=== PATIENT | female | born 1945 | race African-American/Black ===

== ENCOUNTER 2017-05-17 06:47 | Day surgery (SDC) | payer MEDICARE, MEDICAID ==
[~2017-05-17] VITALS: Ht 160 cm; Wt 79.4 kg
[2017-05-17] MEDS ORDERED: BALANCED SALT IRRIG SOLN COMB1 500ML OP SCH (07:30)
[2017-05-17] MEDS ORDERED: PHENYLEPHRINE 2.5% OPHTH 15 DROP/ML BOTTLE LEFTEYE SCH (08:00)
[2017-05-17] MEDS ORDERED: CYCLOPENTOLATE HCL 1% OPHTH DROPS 2ML LEFTEYE SCH (08:00)
[2017-05-17] MEDS ORDERED: KETOROLAC TROMETHAMINE 0.5% OPHTH 3ML LEFTEYE SCH (08:00)
[2017-05-17] MEDS ORDERED: CIPROFLOXACIN 0.3% OPHTH SOLN 2.5ML LEFTEYE SCH (08:00)
[2017-05-17] MEDS ORDERED: TROPICAMIDE 1% OPHTH DROPS 15ML LEFTEYE SCH (08:00)
[2017-05-17] MEDS ORDERED: [UNRECOGNIZED DRUG - OTHER] PO (08:02)
[2017-05-17] MEDS ORDERED: BENA20TA3 PO (08:02)
[2017-05-17] MEDS ORDERED: LOSA50TA20 PO (08:02)
[2017-05-17] MEDS ORDERED: SODIUM CHLORIDE 0.9% 1,000 ML IV SCH ×2 (08:40→10:34)
[2017-05-17] MEDS ORDERED: METHYLPREDNISOLONE SOD SUCC 40 MG/ML VIAL ONE (09:02)
[2017-05-17] MEDS ORDERED: TOBRAMYCIN/DEXAMETH 0.1/0.3% OPHTH SUSP 2.5ML ONE (09:02)
[2017-05-17] MEDS ORDERED: TOBRAMYCIN SULFATE 80MG/2ML 30ML ONE (09:12)
[2017-05-17] MEDS ORDERED: HYALURONATE SODIUM 14 MG/ML 0.85ML SYRINGE IO ONE (09:17)
[2017-05-17] MEDS ORDERED: MIDAZOLAM HCL 2 MG/2 ML VIAL ONE (09:41)
[2017-05-17] MEDS ORDERED: PROPOFOL 200MG/20ML VIAL IV ONE (09:44)
[2017-05-17] MEDS ORDERED: LIDOCAINE HCL 1% 20ML VIAL (Pyxis) INJ ONE (09:44)
[2017-05-17] MEDS ORDERED: FENTANYL CITRATE/PF 50MCG/ML 2ML VIAL ONE (10:27)
[2017-05-17] MEDS ORDERED: ACET-2178 PO (10:44)
[2017-05-17] MEDS ORDERED: MORPHINE SULFATE 2 MG/ML CPJ (NOT FOR IM USE) IV PRN (10:45)
[2017-05-17] MEDS ORDERED: ACET250T3 PO (10:45)
[2017-05-17] MEDS ORDERED: ONDANSETRON HCL 4MG/2ML VIAL IV PRN (10:45)
[2017-05-17] MEDS ORDERED: ACETAMINOPHEN WITH CODEINE 300/30MG TABLET PO PRN (11:30)
[2017-05-17] MEDS ORDERED: ACETYLCHOLINE CHLORIDE INTRAOCULAR SOLUTION 1:100 ELECTROLYTE DILUENT IO ONE (14:52)
[2017-05-17] MEDS ORDERED: BALANCED SALT IRRIG SOLN 15ML ONE (14:52)
[2017-05-17] MEDS ORDERED: NEO/POLYMYX B SULF/DEXAMETH OPHTH OINT 3.5GM ONE (14:54)
[2017-05-17] MEDS ORDERED: PILOCARPINE HCL 2% OPHTH DROPS 15ML ONE (14:54)
[2017-05-17] MEDS ORDERED: BUPIVACAINE HCL/PF 0.75% (7.5MG/ML) 10ML ONE (14:54)
[2017-05-17] MEDS ORDERED: LIDOCAINE HCL 2%/EPINEPHRINE 1:100,000 20 ML VIAL INFIL ONE (14:54)
== END 2017-05-17 12:21 | disposition home or self-care (01) ==
LOC: OR 06:47
PROVIDERS: ATTEND Ophthalmology
DX: H25.12 Age-related nuclear cataract, left eye (principal); H35.3130 Nonexudative age-related macular degeneration, bilateral, stage unspecified; I10 Essential (primary) hypertension; E66.3 Overweight; Z98.890 Other specified postprocedural states; Z88.6 Allergy status to analgesic agent; Z79.899 Other long term (current) drug therapy
CPT/HCPCS: 66982; 82962; J2250; J2920; J3010; J3260; J3490; J7030; J7120; V2632; J2704

== ENCOUNTER 2018-07-16 06:51 | Day surgery (SDC) | payer MEDICARE, MEDICAID ==
[~2018-07-16] VITALS: Ht 167.6 cm; Wt 78.5 kg
[~2018-07-16 06:51] MED LIST: ACET-2178 PO; ACET250T3 PO; BENA20TA10 PO; CYCLOPENTOLATE HCL 1% OPHTH DROPS 2ML RIGHTEYE ONE; LOSA50TA20 PO; PHENYLEPHRINE HCL 10% OPHTH DROPS 5ML RIGHTEYE ONE; TROPICAMIDE 1% OPHTH DROPS 15ML RIGHTEYE ONE; [UNRECOGNIZED DRUG - OTHER] PO
[2018-07-16] MEDS ORDERED: BALANCED SALT IRRIG SOLN COMB1 500ML OP SCH (07:30)
[2018-07-16] MEDS: SODIUM CHLORIDE 0.9% 1,000 ML IV SCH ×2 (07:37→08:00)
[2018-07-16] MEDS ORDERED: AMLO5TAB88 PO (07:59)
[2018-07-16] MEDS ORDERED: ATOR10TA69 PO (07:59)
[2018-07-16] MEDS ORDERED: GLIP10TA10 PO (07:59)
[2018-07-16] MEDS ORDERED: FENTANYL CITRATE/PF 50MCG/ML 2ML VIAL ONE (08:33)
[2018-07-16] MEDS ORDERED: MIDAZOLAM HCL 2 MG/2 ML VIAL ONE (08:33)
[2018-07-16] MEDS ORDERED: HYALURONATE SODIUM 14 MG/ML 0.85ML SYRINGE IO ONE (08:51)
[2018-07-16] MEDS ORDERED: MEPERIDINE HCL/PF 25MG/ML CPJ IV PRN (09:00)
[2018-07-16] MEDS ORDERED: ONDANSETRON HCL 4MG/2ML INJ IV PRN (09:00)
[2018-07-16] MEDS ORDERED: LABETALOL HCL 5MG/ML VIAL 20ML IV PRN (09:00)
[2018-07-16] MEDS ORDERED: HYDROMORPHONE HCL/PF 2MG/ML CPJ IV PRN (09:00)
[2018-07-16] MEDS ORDERED: PREDNISOLONE ACETATE 1% OPHTH DROPS 1ML ONE (10:51)
[2018-07-16] MEDS ORDERED: CIPROFLOXACIN 0.3% OPHTH SOLN 2.5ML ONE (10:51)
[2018-07-16] MEDS ORDERED: BALANCED SALT IRRIG SOLN 15ML ONE (10:51)
[2018-07-16] MEDS ORDERED: NEO/POLYMYX B SULF/DEXAMETH OPHTH OINT 3.5GM ONE (10:51)
[2018-07-16] MEDS ORDERED: LIDOCAINE HCL/PF 2% 20 MG/ML 10ML VIAL ONE (10:51)
[2018-07-16] MEDS ORDERED: ACETYLCHOLINE CHLORIDE INTRAOCULAR SOLUTION 1:100 ELECTROLYTE DILUENT IO ONE (10:51)
[2018-07-16] MEDS ORDERED: BUPIVACAINE HCL/PF 0.75% (7.5MG/ML) 10ML ONE (10:51)
== END 2018-07-16 10:57 | disposition home or self-care (01) ==
LOC: OR 06:51
PROVIDERS: ATTEND Ophthalmology
DX: E11.36 Type 2 diabetes mellitus with diabetic cataract (principal); H26.9 Unspecified cataract; I10 Essential (primary) hypertension; H57.03 Miosis
CPT/HCPCS: 66982; 82962; J2250; J3010; J3490; V2632

== ENCOUNTER 2024-05-08 06:59 | Inpatient (IN) | payer MEDICARE, MEDICAID ==
[~2024-05-08] VITALS: Ht 165.1 cm; Wt 84.5 kg
[~2024-05-08 06:59] MED LIST changes: -ACET-2178 PO; +ACET250T29 PO; -ACET250T3 PO; +AMLO5TAB88 PO; +ATOR10TA69 PO; -BENA20TA10 PO; -CYCLOPENTOLATE HCL 1% OPHTH DROPS 2ML RIGHTEYE ONE; +GLIP10TA10 PO; -LOSA50TA20 PO; +LOSA50TA41 PO; -PHENYLEPHRINE HCL 10% OPHTH DROPS 5ML RIGHTEYE ONE; +TOPUD PO; -TROPICAMIDE 1% OPHTH DROPS 15ML RIGHTEYE ONE
[2024-05-08 07:08] VITALS: O2SAT 96
[2024-05-08 07:44] LABS: BASOPHILS % 0.5 % (0.0-2.0); EOSINOPHILS % 0.1 % (0.0-5.0); HEMATOCRIT. 36.9 % (36.0-48.0); HEMOGLOBIN. 11.9 g/dL (12.0-16.0); LYMPHOCYTES % 8.7 % (20.0-50.0); MEAN CORPUSCULAR HGB CONC 32.3 g/dL (31.0-37.0); MEAN CORPUSCULAR VOLUME 89.7 fL (81.0-99.0); MEAN PLATELET VOLUME 10.4 fl (7.4-10.4); MONOCYTES % 5.1 % (2.0-8.0); NEUTROPHILS % 85.6 % (40.0-76.0); PLATELET 179 x1000/uL (130-400); RED BLOOD CELL COUNT 4.12 mill/uL (4.2-5.4); RED CELL DISTRIBUTION WIDTH 13.2 % (11.6-14.6); WHITE BLOOD COUNT 12.8 x1000/uL (4.5-11.0)
[2024-05-08 07:52] LABS: CALCIUM 9.2 mg/dL (8.7-10.4)
[2024-05-08 07:57] LABS: CREATININE 1.1 mg/dL (0.6-1.0)
[2024-05-08 08:01] LABS: INR 1.1; PROTHROMBIN TIME 12.2 sec (9.6-11.0)
[2024-05-08] MEDS: SODIUM CHLORIDE 0.9% 1,000 ML IV ONE (08:12)
[2024-05-08] MEDS: ONDANSETRON HCL 4MG/2ML INJ IV STA (08:13)
[2024-05-08] MEDS: MORPHINE SULFATE 4 MG/ML INJ (FOR IV/IM USE) IV STA (08:14)
[2024-05-08] MEDS: INSULIN REGULAR (HUMULIN R) 1000UNITS/10ML VIAL SUBCUT NR (09:29)
[2024-05-08] MEDS ORDERED: ONDANSETRON HCL 4MG/2ML INJ IV PRN (13:30)
[2024-05-08] MEDS ORDERED: IPRATROPIUM/ALBUTEROL 0.5-3(2.5)MG/3ML NEB HHN PRN (13:30)
[2024-05-08] MEDS ORDERED: ACETAMINOPHEN 325MG TABLET PO PRN (13:30)
[2024-05-08] MEDS ORDERED: HYDRALAZINE 20MG/ML VIAL IV NR (13:30)
[2024-05-08] MEDS ORDERED: DEXTROSE 50% WATER 50ML SYRINGE IV PRN (13:30)
[2024-05-08] MEDS: SODIUM CHLORIDE 0.9% 1,000 ML IV SCH (13:30)
[2024-05-08] MEDS ORDERED: NALOXONE HCL 0.4MG/ML VIAL IV PRN (13:30)
[2024-05-08] MEDS ORDERED: GUAIFENESIN 200MG/10ML SUGAR FREE UDC PO PRN (13:30)
[2024-05-08] MEDS ORDERED: MAGNESIUM/ALUMINUM HYDROXIDE/SIMETHICONE 30ML UDC PO PRN (13:30)
[2024-05-08 13:50] VITALS: BP 161/77; PULSE 82; RESP 18; TEMP 36.61404; TEMP 36.6404; O2SAT 100
[2024-05-08] MEDS: HYDRALAZINE 10 MG in SODIUM CHLORIDE 0.9% 49.5 ML IV NR (15:48)
[2024-05-08 16:00] VITALS: BP 117/54; PULSE 80; RESP 18; TEMP 36.33624; O2SAT 100
[2024-05-08] MEDS: ENOXAPARIN 40MG/0.4ML SYR SUBCUT SCH (16:00)
[2024-05-08 17:14] LABS: INR 1.1; PARTIAL THROMBOPLASTIN TIME 26.8 sec (23.4-31.0); PROTHROMBIN TIME 11.9 sec (9.6-11.0)
[2024-05-08 17:31] LABS: CREATINE KINASE 335 IU/L (34-145)
[2024-05-08 17:38] LABS: TROPONIN I HIGH SENSITIVITY 94 ng/L (3.0-34)
[2024-05-08] MEDS: BLOOD SUGAR DIAGNOSTIC STRIP TEST SCH (17:45)
[2024-05-08] MEDS ORDERED: MORPHINE SULFATE 2 MG/ML INJ (NOT FOR IM USE) IV PRN (18:30)
[2024-05-08] MEDS: INSULIN LISPRO 100 UNITS/ML SUBCUT SCH (18:49)
[2024-05-08 18:58] LABS: ALANINE AMINOTRANSFERASE 12 IU/L (10-49); ALBUMIN 3.5 g/dL (3.2-4.8); ASPARTATE AMINOTRANSFERASE 20 IU/L (<34); BILIRUBIN DIRECT 0.2 mg/dL (<=3.0); BILIRUBIN TOTAL 0.7 mg/dL (0.1-1.0); PHOSPHORUS 3.1 mg/dL (2.5-4.9); PROTEIN TOTAL 8.1 g/dL (6.0-8.3)
[2024-05-08] MEDS: ATORVASTATIN CALCIUM 40MG TABLET PO SCH (20:45)
[2024-05-08 21:30] VITALS: BP 155/55; PULSE 86; RESP 18; TEMP 38.892; O2SAT 100
[2024-05-08] MEDS: ACETAMINOPHEN 325MG TABLET PO PRN (22:34)
[2024-05-09] VITALS: BP 140/56; PULSE 86; RESP 20; TEMP 38.16972; O2SAT 100
[2024-05-09 04:00] VITALS: BP 130/66; PULSE 71; RESP 18; TEMP 37.16964; O2SAT 100
[2024-05-09] MEDS: MORPHINE SULFATE 2 MG/ML INJ (NOT FOR IM USE) IV PRN (04:53)
[2024-05-09] MEDS ORDERED: POLYMYXIN B SULFATE 500000 UNITS/VIAL ONE ×2 (06:47→11:02)
[2024-05-09] MEDS ORDERED: LIDOCAINE HCL/EPINEPHRINE 1%-EPI 1:100,000 20ML VIAL ONE ×2 (06:47→11:02)
[2024-05-09] MEDS ORDERED: VANCOMYCIN HCL 1GM VIAL ONE ×2 (06:47→11:02)
[2024-05-09] MEDS ORDERED: BACITRACIN 14GM TUBE TOP ONE (06:47)
[2024-05-09 07:00] LABS: CALCIUM 8.3 mg/dL (8.7-10.4); CARBON DIOXIDE 24 mEq/L (21-32); CHLORIDE 105 mEq/L (98-107); POTASSIUM 3.5 mEq/L (3.5-5.1); SODIUM 136 mEq/L (136-145)
[2024-05-09 07:03] LABS: BASOPHILS % 0.4 % (0.0-2.0); EOSINOPHILS % 0.9 % (0.0-5.0); HEMATOCRIT. 32.4 % (36.0-48.0); HEMOGLOBIN. 10.6 g/dL (12.0-16.0); LYMPHOCYTES % 25.3 % (20.0-50.0); MEAN CORPUSCULAR HEMOGLOBIN 29.6 pg (28.0-32.0); MEAN CORPUSCULAR HGB CONC 32.7 g/dL (31.0-37.0); MEAN CORPUSCULAR VOLUME 90.5 fL (81.0-99.0); MEAN PLATELET VOLUME 10.8 fl (7.4-10.4); MONOCYTES % 7.3 % (2.0-8.0); NEUTROPHILS % 66.1 % (40.0-76.0); PLATELET 157 x1000/uL (130-400); RED BLOOD CELL COUNT 3.58 mill/uL (4.2-5.4); RED CELL DISTRIBUTION WIDTH 12.8 % (11.6-14.6); WHITE BLOOD COUNT 7.2 x1000/uL (4.5-11.0)
[2024-05-09 07:06] LABS: CREATININE 0.9 mg/dL (0.6-1.0); GLUCOSE 186 mg/dL (70-105); TRIGLYCERIDE 89 mg/dL (0-150)
[2024-05-09 07:07] LABS: LDL CHOLESTEROL 82 mg/dL (5-100); T4 FREE 1.27 ng/dL (0.89-1.76); THYROID STIMULATING HORMONE 0.73 uIU/mL (0.55-4.78); UREA NITROGEN BLOOD 17 mg/dL (9-23)
[2024-05-09 07:08] LABS: CHOLESTEROL 135 mg/dL (<200); HDL CHOLESTEROL 42 mg/dL (>65); PHOSPHORUS 2.6 mg/dL (2.5-4.9)
[2024-05-09 07:55] VITALS: BP 153/70; PULSE 76; RESP 20; TEMP 37.05852; O2SAT 100
[2024-05-09] MEDS ORDERED: ACETAMINOPHEN 325MG TABLET PO PRN (10:45)
[2024-05-09] MEDS ORDERED: HYDROCODONE/ACETAMINOPHEN 5/325MG TABLET PO PRN (10:45)
[2024-05-09] MEDS ORDERED: ONDANSETRON HCL 4MG/2ML INJ IV PRN ×2 (10:45→12:30)
[2024-05-09] MEDS ORDERED: BUPIVACAINE HCL/PF 0.25% (2.5MG/ML) 10ML ONE (11:02)
[2024-05-09] MEDS ORDERED: MIDAZOLAM HCL 2 MG/2 ML VIAL ONE (11:20)
[2024-05-09] MEDS ORDERED: ETOMIDATE 2MG/ML 10ML VIAL IV ONE (11:20)
[2024-05-09] MEDS ORDERED: FENTANYL CITRATE/PF 50MCG/ML 2ML VIAL ONE (11:20)
[2024-05-09] MEDS ORDERED: TRANEXAMIC ACID 1000MG PREMIX 200 ML IV ONE (11:41)
[2024-05-09] MEDS ORDERED: ROPIVACAINE HCL 1% 20 ML VIAL EPI ONE (12:17)
[2024-05-09] MEDS ORDERED: SKIN ADHESIVE 0.7 GM EA TOP ONE (12:26)
[2024-05-09] MEDS ORDERED: LABETALOL 5MG/ML 4ML INJ IV PRN (12:30)
[2024-05-09] MEDS ORDERED: HYDROMORPHONE HCL/PF 1MG/ML INJ IV PRN (12:30)
[2024-05-09] MEDS ORDERED: SUGAMMADEX SODIUM 200MG/2ML VIAL IV ONE (12:47)
[2024-05-09] MEDS: MEPERIDINE HCL/PF 25MG/ML CPJ IV PRN (13:50)
[2024-05-09] MEDS: METOCLOPRAMIDE HCL 10MG/2ML VIAL IV SCH (14:00)
[2024-05-09 15:04] VITALS: BP 148/62; PULSE 81; RESP 20; TEMP 36.50292; O2SAT 98
[2024-05-09 15:28] VITALS: BP 122/65; PULSE 86; RESP 18; TEMP 36.83628; O2SAT 100
[2024-05-09] MEDS: CEFAZOLIN 1000MG PREMIX 50 ML IV SCH ×2 (17:25→20:00)
[2024-05-09] MEDS: ASPIRIN 325MG EC TABLET PO SCH (21:00)
[2024-05-09] MEDS: ASPIRIN 81MG TABLET PO NR (21:35)
[2024-05-09] MEDS: SENNOSIDES/DOCUSATE SOD 8.6/50MG TABLET PO SCH (21:39)
[2024-05-10] VITALS: BP 105/48; PULSE 93; RESP 18; TEMP 37.55856; O2SAT 100
[2024-05-10 04:00] VITALS: BP 145/54; PULSE 95; RESP 18; TEMP 37.55856; O2SAT 97
[2024-05-10] MEDS: KETOROLAC 30MG/ML VIAL IV PRN (04:15)
[2024-05-10 07:29] LABS: CHLORIDE 107 mEq/L (98-107); POTASSIUM 3.2 mEq/L (3.5-5.1); SODIUM 139 mEq/L (136-145)
[2024-05-10 07:30] LABS: BASOPHILS % 0.4 % (0.0-2.0); CARBON DIOXIDE 23 mEq/L (21-32); EOSINOPHILS % 0.4 % (0.0-5.0); HEMATOCRIT. 27.9 % (36.0-48.0); LYMPHOCYTES % 19.2 % (20.0-50.0); MEAN CORPUSCULAR HEMOGLOBIN 29.2 pg (28.0-32.0); MEAN CORPUSCULAR HGB CONC 32.4 g/dL (31.0-37.0); MEAN PLATELET VOLUME 10.7 fl (7.4-10.4); MONOCYTES % 13.3 % (2.0-8.0); NEUTROPHILS % 66.7 % (40.0-76.0); PLATELET 140 x1000/uL (130-400); RED CELL DISTRIBUTION WIDTH 12.9 % (11.6-14.6); WHITE BLOOD COUNT 8.3 x1000/uL (4.5-11.0)
[2024-05-10 07:31] LABS: CALCIUM 7.9 mg/dL (8.7-10.4)
[2024-05-10 07:35] LABS: CREATININE 0.7 mg/dL (0.6-1.0); GLUCOSE 109 mg/dL (70-105); UREA NITROGEN BLOOD 11 mg/dL (9-23)
[2024-05-10 08:00] VITALS: BP 129/57; PULSE 91; RESP 18; TEMP 37.16964; O2SAT 99
[2024-05-10 08:08] LABS: TROPONIN I HIGH SENSITIVITY 47 ng/L (3.0-34)
[2024-05-10] MEDS ORDERED: ASPIRIN 325MG EC TABLET PO SCH (09:00)
[2024-05-10] MEDS: HYDROCODONE/ACETAMINOPHEN 5/325MG TABLET PO PRN (10:19)
[2024-05-10] MEDS: POTASSIUM CHLORIDE 20MEQ TABLET SR PO SCH (10:20)
[2024-05-10 12:00] VITALS: BP 119/54; PULSE 79; RESP 18; TEMP 36.6696; O2SAT 98
[2024-05-10] MEDS: ASPIRIN 81MG EC TABLET PO SCH (13:57)
[2024-05-10 16:00] VITALS: BP 121/69; PULSE 80; RESP 18; TEMP 36.61404; O2SAT 100
[2024-05-10 17:26] LABS: CREATINE KINASE 396 IU/L (34-145); PHOSPHORUS 2.4 mg/dL (2.5-4.9)
[2024-05-10 20:00] VITALS: BP 145/59; PULSE 85; RESP 20; TEMP 37.11408; O2SAT 96
[2024-05-11] VITALS: BP 155/64; PULSE 93; RESP 20; TEMP 37.61412; O2SAT 98
[2024-05-11 04:00] VITALS: BP 164/70; PULSE 80; RESP 20; TEMP 37.7808; O2SAT 98
[2024-05-11] MEDS: CLONIDINE 0.1MG TABLET PO PRN (05:57)
[2024-05-11 06:59] LABS: CHLORIDE 104 mEq/L (98-107); POTASSIUM 3.3 mEq/L (3.5-5.1); SODIUM 137 mEq/L (136-145)
[2024-05-11 07:00] LABS: CARBON DIOXIDE 25 mEq/L (21-32)
[2024-05-11 07:05] LABS: CREATININE 0.7 mg/dL (0.6-1.0); GLUCOSE 158 mg/dL (70-105)
[2024-05-11 07:06] LABS: UREA NITROGEN BLOOD 9 mg/dL (9-23)
[2024-05-11 07:07] LABS: PHOSPHORUS 2.2 mg/dL (2.5-4.9)
[2024-05-11 07:08] LABS: BASOPHILS % 0.4 % (0.0-2.0); EOSINOPHILS % 0.9 % (0.0-5.0); HEMATOCRIT. 29.3 % (36.0-48.0); HEMOGLOBIN. 9.6 g/dL (12.0-16.0); LYMPHOCYTES % 25.7 % (20.0-50.0); MEAN CORPUSCULAR HEMOGLOBIN 29.4 pg (28.0-32.0); MEAN CORPUSCULAR HGB CONC 32.6 g/dL (31.0-37.0); MEAN CORPUSCULAR VOLUME 90.2 fL (81.0-99.0); MEAN PLATELET VOLUME 10.6 fl (7.4-10.4); MONOCYTES % 11.4 % (2.0-8.0); NEUTROPHILS % 61.6 % (40.0-76.0); PLATELET 147 x1000/uL (130-400); RED BLOOD CELL COUNT 3.25 mill/uL (4.2-5.4); RED CELL DISTRIBUTION WIDTH 13.2 % (11.6-14.6); WHITE BLOOD COUNT 8.2 x1000/uL (4.5-11.0)
[2024-05-11 08:00] VITALS: BP 118/46; PULSE 80; RESP 18; TEMP 37.44744; O2SAT 95
[2024-05-11] MEDS: POTASSIUM CHLORIDE 20MEQ TABLET SR PO NR (09:10)
[2024-05-11 12:00] VITALS: BP 129/51; PULSE 83; RESP 18; TEMP 36.78072; O2SAT 99
[2024-05-11] MEDS: MAGNESIUM 2 G PREMIX 50 ML IV NR (12:58)
[2024-05-11 16:00] VITALS: BP 138/59; PULSE 84; RESP 18; TEMP 36.78072; O2SAT 100
[2024-05-11] MEDS: POTASSIUM PHOSPHATE 15 MMOL in DEXT 5% WATER 245 ML IV NR (16:14)
[2024-05-11 20:00] VITALS: BP 149/60; PULSE 64; RESP 18; TEMP 37.33632; O2SAT 98
[2024-05-12] VITALS: BP 141/60; PULSE 68; RESP 18; TEMP 37.00296; O2SAT 99
[2024-05-12 04:00] VITALS: BP 147/58; PULSE 66; RESP 19; TEMP 36.78072; O2SAT 98
[2024-05-12 06:37] LABS: BASOPHILS % 0.5 % (0.0-2.0); EOSINOPHILS % 0.7 % (0.0-5.0); HEMATOCRIT. 28.7 % (36.0-48.0); HEMOGLOBIN. 9.5 g/dL (12.0-16.0); LYMPHOCYTES % 18.7 % (20.0-50.0); MEAN CORPUSCULAR HEMOGLOBIN 29.4 pg (28.0-32.0); MEAN CORPUSCULAR VOLUME 89.1 fL (81.0-99.0); MONOCYTES % 8.5 % (2.0-8.0); NEUTROPHILS % 71.6 % (40.0-76.0); PLATELET 158 x1000/uL (130-400); RED BLOOD CELL COUNT 3.22 mill/uL (4.2-5.4); RED CELL DISTRIBUTION WIDTH 12.8 % (11.6-14.6); WHITE BLOOD COUNT 9.5 x1000/uL (4.5-11.0)
[2024-05-12 06:52] LABS: CHLORIDE 102 mEq/L (98-107); POTASSIUM 3.9 mEq/L (3.5-5.1); SODIUM 136 mEq/L (136-145)
[2024-05-12 06:53] LABS: CALCIUM 8.2 mg/dL (8.7-10.4); CARBON DIOXIDE 27 mEq/L (21-32)
[2024-05-12 06:58] LABS: CREATININE 0.7 mg/dL (0.6-1.0); GLUCOSE 169 mg/dL (70-105); UREA NITROGEN BLOOD 8 mg/dL (9-23)
[2024-05-12 07:00] LABS: PHOSPHORUS 2.9 mg/dL (2.5-4.9)
[2024-05-12 08:00] VITALS: BP 142/57; PULSE 88; RESP 17; TEMP 37.28076; O2SAT 95
[2024-05-12] MEDS ORDERED: OMEP40CA20 MT (11:35)
[2024-05-12] MEDS ORDERED: IBUP-2028 MT (11:35)
[2024-05-12] MEDS ORDERED: ASPI-1406 MT (11:35)
[2024-05-12] MEDS ORDERED: LIP40 PO (11:35)
[2024-05-12 12:00] VITALS: BP 137/56; PULSE 88; RESP 17; TEMP 36.61404; O2SAT 97
[2024-05-12 16:00] VITALS: BP 147/53; PULSE 88; RESP 18; TEMP 36.50292; O2SAT 100
[2024-05-12] MEDS: DOCUSATE SODIUM 100MG CAPSULE PO PRN (16:36)
[2024-05-12 20:00] VITALS: BP 130/47; PULSE 98; RESP 20; TEMP 37.72524; O2SAT 98
[2024-05-13] VITALS: BP 136/52; PULSE 88; RESP 18; TEMP 37.16964; O2SAT 98
[2024-05-13 00:19] LABS: CLARITY URINE CLEAR (CLEAR); COLOR URINE YELLOW (YELLOW); GLUCOSE URINE TRACE (NEGATIVE); KETONES URINE NEGATIVE (NEGATIVE); LEUKOCYTE ESTERASE URINE NEGATIVE (NEGATIVE); NITRITE URINE NEGATIVE (NEGATIVE); OCCULT BLOOD URINE 1+ (NEGATIVE); PH URINE 5.5 (4.5-8.0); PROTEIN URINE TRACE (NEGATIVE); SPECIFIC GRAVITY URINE 1.015 (1.005-1.030)
[2024-05-13 03:01] LABS: WBC URINE 0-2 /hpf (0-2)
[2024-05-13 03:02] LABS: BACTERIA URINE NONE SEEN; SQUAMOUS EPITHELIAL CELL URINE NONE SEEN /lpf (RARE/1+)
[2024-05-13 04:00] VITALS: BP 139/51; PULSE 98; RESP 20; TEMP 37.11408; O2SAT 98
[2024-05-13 06:37] LABS: CHLORIDE 100 mEq/L (98-107); SODIUM 133 mEq/L (136-145)
[2024-05-13 06:38] LABS: CARBON DIOXIDE 27 mEq/L (21-32)
[2024-05-13 06:39] LABS: CALCIUM 8.4 mg/dL (8.7-10.4)
[2024-05-13 06:43] LABS: CREATININE 0.7 mg/dL (0.6-1.0); GLUCOSE 130 mg/dL (70-105); UREA NITROGEN BLOOD 8 mg/dL (9-23)
[2024-05-13 06:58] LABS: BASOPHILS % 0.6 % (0.0-2.0); EOSINOPHILS % 0.5 % (0.0-5.0); HEMATOCRIT. 28.5 % (36.0-48.0); HEMOGLOBIN. 9.3 g/dL (12.0-16.0); LYMPHOCYTES % 19.8 % (20.0-50.0); MEAN CORPUSCULAR HEMOGLOBIN 28.8 pg (28.0-32.0); MEAN CORPUSCULAR HGB CONC 32.5 g/dL (31.0-37.0); MEAN CORPUSCULAR VOLUME 88.4 fL (81.0-99.0); MEAN PLATELET VOLUME 9.8 fl (7.4-10.4); MONOCYTES % 8.3 % (2.0-8.0); NEUTROPHILS % 70.8 % (40.0-76.0); PLATELET 199 x1000/uL (130-400); RED BLOOD CELL COUNT 3.23 mill/uL (4.2-5.4); RED CELL DISTRIBUTION WIDTH 12.9 % (11.6-14.6); WHITE BLOOD COUNT 11.2 x1000/uL (4.5-11.0)
[2024-05-13 08:00] VITALS: BP 127/47; PULSE 87; RESP 18; TEMP 36.61404; O2SAT 98
[2024-05-13 08:18] LABS: CREATINE KINASE 113 IU/L (34-145)
[2024-05-13] MEDS: ENOXAPARIN 40MG/0.4ML SYR SUBCUT SCH (08:35)
[2024-05-13] MEDS: NA PHOS,M-B/NA PHOS,DI-BA ENEMA 118ML PR ONE (10:15)
[2024-05-13 12:00] VITALS: BP 136/56; PULSE 81; RESP 20; TEMP 36.6696; O2SAT 96
[2024-05-13 12:30] LABS: PHOSPHORUS 3.1 mg/dL (2.5-4.9)
[2024-05-13] MEDS: LACTULOSE 20G/30ML UDC PO NR (13:02)
[2024-05-13 16:08] VITALS: BP 145/53; PULSE 86; RESP 18; TEMP 36.61404; O2SAT 98
[2024-05-13 20:00] VITALS: BP 154/68; PULSE 88; RESP 20; TEMP 38.22528; O2SAT 98
[2024-05-14] VITALS: BP 153/64; PULSE 86; RESP 20; TEMP 37.503; O2SAT 96
[2024-05-14] MEDS: KETOROLAC 15MG/ML VIAL IV PRN (00:16)
[2024-05-14 04:00] VITALS: BP 141/67; PULSE 82; RESP 18; TEMP 37.66968; O2SAT 98
[2024-05-14 05:57] LABS: CARBON DIOXIDE 27 mEq/L (21-32); CHLORIDE 101 mEq/L (98-107); POTASSIUM 3.8 mEq/L (3.5-5.1); SODIUM 136 mEq/L (136-145)
[2024-05-14 05:58] LABS: CALCIUM 8.7 mg/dL (8.7-10.4)
[2024-05-14 06:03] LABS: BASOPHILS % 0.3 % (0.0-2.0); CREATININE 0.8 mg/dL (0.6-1.0); GLUCOSE 77 mg/dL (70-105); HEMATOCRIT. 28.7 % (36.0-48.0); HEMOGLOBIN. 9.5 g/dL (12.0-16.0); LYMPHOCYTES % 21.5 % (20.0-50.0); MEAN CORPUSCULAR HEMOGLOBIN 29.7 pg (28.0-32.0); MEAN CORPUSCULAR HGB CONC 33.1 g/dL (31.0-37.0); MEAN CORPUSCULAR VOLUME 89.9 fL (81.0-99.0); MEAN PLATELET VOLUME 9.8 fl (7.4-10.4); MONOCYTES % 10.3 % (2.0-8.0); NEUTROPHILS % 66.9 % (40.0-76.0); PLATELET 230 x1000/uL (130-400); RED BLOOD CELL COUNT 3.19 mill/uL (4.2-5.4); RED CELL DISTRIBUTION WIDTH 12.7 % (11.6-14.6); UREA NITROGEN BLOOD 9 mg/dL (9-23)
[2024-05-14 06:05] LABS: PHOSPHORUS 3.6 mg/dL (2.5-4.9)
[2024-05-14 08:00] VITALS: BP 138/79; PULSE 86; RESP 18; TEMP 37.16964; O2SAT 99
[2024-05-14] MEDS: LACTULOSE 20G/30ML UDC PO NR (11:00)
[2024-05-14 12:00] VITALS: BP 126/67; PULSE 86; RESP 18; TEMP 36.6696; O2SAT 98
[2024-05-14 16:00] VITALS: BP 126/67; PULSE 80; RESP 18; TEMP 36.55848; O2SAT 98
[2024-05-14 20:20] VITALS: BP 136/56; PULSE 83; RESP 19; TEMP 36.3918; O2SAT 99
[2024-05-15] VITALS: BP 140/58; PULSE 78; RESP 20; TEMP 36.55848; O2SAT 100
[2024-05-15 04:00] VITALS: BP 138/55; PULSE 76; RESP 19; TEMP 36.3918; O2SAT 98
[2024-05-15 05:54] LABS: CALCIUM 8.4 mg/dL (8.7-10.4); CHLORIDE 101 mEq/L (98-107); POTASSIUM 3.6 mEq/L (3.5-5.1); SODIUM 136 mEq/L (136-145)
[2024-05-15 05:55] LABS: CARBON DIOXIDE 28 mEq/L (21-32)
[2024-05-15 06:00] LABS: CREATININE 0.8 mg/dL (0.6-1.0); GLUCOSE 197 mg/dL (70-105); UREA NITROGEN BLOOD 12 mg/dL (9-23)
[2024-05-15 06:03] LABS: PHOSPHORUS 2.8 mg/dL (2.5-4.9)
[2024-05-15 06:51] LABS: BASOPHILS % 0.4 % (0.0-2.0); EOSINOPHILS % 1.4 % (0.0-5.0); HEMATOCRIT. 29.5 % (36.0-48.0); HEMOGLOBIN. 9.9 g/dL (12.0-16.0); LYMPHOCYTES % 24.8 % (20.0-50.0); MEAN CORPUSCULAR HEMOGLOBIN 29.8 pg (28.0-32.0); MEAN CORPUSCULAR HGB CONC 33.5 g/dL (31.0-37.0); MEAN CORPUSCULAR VOLUME 88.7 fL (81.0-99.0); MEAN PLATELET VOLUME 9.4 fl (7.4-10.4); MONOCYTES % 10.2 % (2.0-8.0); NEUTROPHILS % 63.2 % (40.0-76.0); PLATELET 257 x1000/uL (130-400); RED BLOOD CELL COUNT 3.32 mill/uL (4.2-5.4); RED CELL DISTRIBUTION WIDTH 12.7 % (11.6-14.6); WHITE BLOOD COUNT 9.1 x1000/uL (4.5-11.0)
[2024-05-15 07:56] VITALS: BP 139/61; PULSE 76; RESP 18; TEMP 36.89184; O2SAT 95
[2024-05-15] MEDS: PANTOPRAZOLE 40MG DR TABLET PO SCH (08:38)
[2024-05-15 11:48] VITALS: BP 155/65; PULSE 72; RESP 18; TEMP 36.78072; O2SAT 97
[2024-05-15 16:08] VITALS: BP 123/53; PULSE 76; RESP 18; TEMP 36.89184; O2SAT 98
[2024-05-15 20:00] VITALS: BP 126/55; PULSE 75; RESP 20; TEMP 36.61404; O2SAT 98
[2024-05-16] VITALS: BP 129/49; PULSE 76; RESP 20; TEMP 36.50292; O2SAT 100
[2024-05-16 04:00] VITALS: BP 130/50; PULSE 76; RESP 18; TEMP 36.72516; O2SAT 99
[2024-05-16 08:00] VITALS: BP 128/79; PULSE 80; RESP 20; TEMP 36.44736; O2SAT 100
[2024-05-16 12:00] VITALS: BP 118/86; PULSE 79; RESP 18; TEMP 36.6696; O2SAT 97
[2024-05-16 16:00] VITALS: BP 132/47; PULSE 92; RESP 18; TEMP 37.00296; O2SAT 100
[2024-05-16 20:00] VITALS: BP 135/54; PULSE 85; RESP 20; TEMP 36.61404; O2SAT 97
[2024-05-17] VITALS: BP 141/60; PULSE 76; RESP 20; TEMP 36.3918; O2SAT 99
[2024-05-17 04:00] VITALS: BP 122/32; PULSE 70; RESP 20; TEMP 36.50292; O2SAT 100
[2024-05-17 08:00] VITALS: BP 118/54; PULSE 74; RESP 20; TEMP 36.44736; O2SAT 98
[2024-05-17 12:00] VITALS: BP 138/79; PULSE 79; RESP 18; TEMP 37.05852; O2SAT 99
[2024-05-17] MEDS: IBUPROFEN 200MG TABLET PO SCH (14:15)
[2024-05-17 16:00] VITALS: BP 128/79; PULSE 78; RESP 18; TEMP 36.72516; O2SAT 94
[2024-05-17 20:00] VITALS: BP 124/55; PULSE 77; RESP 18; TEMP 36.61404; O2SAT 99
[2024-05-18] VITALS: BP 120/58; PULSE 72; RESP 18; TEMP 36.55848; O2SAT 100
[2024-05-18 04:00] VITALS: BP 133/58; PULSE 83; RESP 19; TEMP 36.33624; O2SAT 99
[2024-05-18 07:27] LABS: CALCIUM 8.7 mg/dL (8.7-10.4); CARBON DIOXIDE 26 mEq/L (21-32); CHLORIDE 102 mEq/L (98-107); POTASSIUM 4.2 mEq/L (3.5-5.1); SODIUM 136 mEq/L (136-145)
[2024-05-18 07:33] LABS: CREATININE 0.9 mg/dL (0.6-1.0); GLUCOSE 143 mg/dL (70-105)
[2024-05-18 07:34] LABS: UREA NITROGEN BLOOD 11 mg/dL (9-23)
[2024-05-18 07:39] LABS: BASOPHILS % 0.4 % (0.0-2.0); EOSINOPHILS % 1.3 % (0.0-5.0); HEMOGLOBIN. 10.2 g/dL (12.0-16.0); MEAN CORPUSCULAR HEMOGLOBIN 29.3 pg (28.0-32.0); MEAN CORPUSCULAR HGB CONC 32.9 g/dL (31.0-37.0); MEAN CORPUSCULAR VOLUME 89.1 fL (81.0-99.0); MEAN PLATELET VOLUME 9.3 fl (7.4-10.4); MONOCYTES % 7.4 % (2.0-8.0); NEUTROPHILS % 52.9 % (40.0-76.0); PLATELET 371 x1000/uL (130-400); RED BLOOD CELL COUNT 3.48 mill/uL (4.2-5.4); RED CELL DISTRIBUTION WIDTH 13.1 % (11.6-14.6); WHITE BLOOD COUNT 7.9 x1000/uL (4.5-11.0)
[2024-05-18 08:12] VITALS: BP 129/92; PULSE 79; RESP 19; TEMP 36.83628; O2SAT 96
[2024-05-18] MEDS: ASPIRIN 81MG EC TABLET PO SCH (08:52)
[2024-05-18 11:45] VITALS: BP 132/43; PULSE 69; RESP 18; TEMP 36.9474; O2SAT 99
[2024-05-18 15:59] VITALS: BP 127/39; PULSE 76; RESP 18; TEMP 36.9474; O2SAT 93
[2024-05-18 20:00] VITALS: BP 124/50; PULSE 77; RESP 18; TEMP 36.61404; O2SAT 100
[2024-05-19] VITALS: BP 124/52; PULSE 77; RESP 18; TEMP 36.6696; O2SAT 98
[2024-05-19 04:00] VITALS: BP 119/55; PULSE 78; RESP 18; TEMP 36.72516; O2SAT 98
[2024-05-19 07:13] LABS: POTASSIUM 4.1 mEq/L (3.5-5.1)
[2024-05-19 07:15] LABS: CALCIUM 8.1 mg/dL (8.7-10.4)
[2024-05-19 07:19] LABS: CREATININE 1.1 mg/dL (0.6-1.0)
[2024-05-19 07:49] LABS: BASOPHILS % 0.4 % (0.0-2.0); EOSINOPHILS % 0.9 % (0.0-5.0); HEMATOCRIT. 30.1 % (36.0-48.0); HEMOGLOBIN. 9.9 g/dL (12.0-16.0); LYMPHOCYTES % 37.6 % (20.0-50.0); MEAN CORPUSCULAR HEMOGLOBIN 29.5 pg (28.0-32.0); MEAN CORPUSCULAR VOLUME 89.5 fL (81.0-99.0); MEAN PLATELET VOLUME 9.1 fl (7.4-10.4); MONOCYTES % 8.1 % (2.0-8.0); PLATELET 348 x1000/uL (130-400); RED BLOOD CELL COUNT 3.36 mill/uL (4.2-5.4)
[2024-05-19 08:00] VITALS: BP 139/52; PULSE 71; RESP 20; TEMP 36.72516; O2SAT 98
[2024-05-19 08:23] LABS: DIFFERENTIAL COMMENT 1
[2024-05-19 11:55] VITALS: BP 117/48; PULSE 76; RESP 16; TEMP 36.33624; O2SAT 98
[2024-05-19 16:00] VITALS: BP 130/79; PULSE 80; RESP 20; TEMP 36.44736; O2SAT 95
[2024-05-19 20:00] VITALS: BP 134/51; PULSE 77; RESP 20; TEMP 36.3918; O2SAT 100
[2024-05-20] VITALS: BP 122/69; PULSE 76; RESP 18; TEMP 37.11408; O2SAT 98
[2024-05-20 04:00] VITALS: BP 128/57; PULSE 69; RESP 18; TEMP 37.61412; O2SAT 99
[2024-05-20 07:06] LABS: BASOPHILS % 0.6 % (0.0-2.0); EOSINOPHILS % 1.1 % (0.0-5.0); HEMATOCRIT. 29.7 % (36.0-48.0); HEMOGLOBIN. 9.7 g/dL (12.0-16.0); LYMPHOCYTES % 35.5 % (20.0-50.0); MEAN CORPUSCULAR HGB CONC 32.6 g/dL (31.0-37.0); MEAN CORPUSCULAR VOLUME 88.7 fL (81.0-99.0); MONOCYTES % 8.6 % (2.0-8.0); NEUTROPHILS % 54.2 % (40.0-76.0); PLATELET 345 x1000/uL (130-400); RED BLOOD CELL COUNT 3.34 mill/uL (4.2-5.4); RED CELL DISTRIBUTION WIDTH 13.2 % (11.6-14.6); WHITE BLOOD COUNT 6.9 x1000/uL (4.5-11.0)
[2024-05-20 07:09] LABS: CARBON DIOXIDE 25 mEq/L (21-32); CHLORIDE 104 mEq/L (98-107); POTASSIUM 4.2 mEq/L (3.5-5.1); SODIUM 137 mEq/L (136-145)
[2024-05-20 07:10] LABS: CALCIUM 8.7 mg/dL (8.7-10.4)
[2024-05-20 07:13] LABS: CREATININE 0.9 mg/dL (0.6-1.0)
[2024-05-20 07:15] LABS: GLUCOSE 169 mg/dL (70-105); UREA NITROGEN BLOOD 16 mg/dL (9-23)
[2024-05-20 07:17] LABS: PHOSPHORUS 3.8 mg/dL (2.5-4.9)
[2024-05-20 08:00] VITALS: BP 119/47; PULSE 70; RESP 18; TEMP 37.05852; O2SAT 100
[2024-05-20] MEDS: POLYETHYLENE GLYCOL 3350 (17GM) 1 DOSE PACK PO SCH (11:45)
[2024-05-20 12:00] VITALS: BP 120/81; PULSE 80; RESP 20; TEMP 36.89184; O2SAT 98
[2024-05-20] MEDS: LACTULOSE 20G/30ML UDC PO PRN (14:26)
[2024-05-20 16:00] VITALS: BP 125/54; PULSE 81; RESP 18; TEMP 36.44736; O2SAT 100
== END 2024-05-20 18:00 | DRG 323 ==
LOC: ER 06:59 → 5WST 12:11 → EDBEDREQTM 12:20 → EDBEDREQ 12:20 → EDBEDREQSVC 12:20 → EDBEDREQ 12:21 → 6EST 14:11 → 7WST 21:10
PROVIDERS: ADMIT Internal Medicine; ATTEND Internal Medicine
PROC: 0SRS0JA Replacement of Left Hip Joint, Femoral Surface with Synthetic Substitute, Uncemented, Open Approach (ICD-10-PCS; principal; 2024-05-09)
DX: S72.032A Displaced midcervical fracture of left femur, initial encounter for closed fracture (principal); N17.0 Acute kidney failure with tubular necrosis; M62.82 Rhabdomyolysis; D64.9 Anemia, unspecified; D72.829 Elevated white blood cell count, unspecified; E87.1 Hypo-osmolality and hyponatremia; E11.65 Type 2 diabetes mellitus with hyperglycemia; R79.89 Other specified abnormal findings of blood chemistry; W18.39XA Other fall on same level, initial encounter; Y93.89 Activity, other specified; Y92.89 Other specified places as the place of occurrence of the external cause; Y99.8 Other external cause status; Z79.899 Other long term (current) drug therapy; Z88.6 Allergy status to analgesic agent; Z79.84 Long term (current) use of oral hypoglycemic drugs
CPT/HCPCS: 36415; 71045; 73502; 80048; 80061; 80076; 81003; 82550; 82962; 83036; 83735; 83880; 84100; 84145; 84439; 84443; 84484; 85025; 86850; 86900; 88304; 88311; 93005; 93970; 97110; 97116; 97162; 97166; 97530; 97535; 99285; J0360; J0690; J1650; J1815; J1885; J2175; J2250; J2270; J2405; J2765; J2795; J3010; J3370; J3475; J3490; J7030; J7060; C1776